=== PATIENT | male | born 1950 | race Caucasian/White ===

== ENCOUNTER 2021-04-14 10:38 | Emergency (ER) | payer OTHER, SELFPAY ==
[2021-04-14 11:14] LABS: BASOPHIL 0.7 % (0-2); EOSINOPHIL 0.6 % (0-7); HCT 48.1 % (42.0-52.0); HGB 17.1 g/dl (13.2-18.0); LYMPHOCYTE 21.2 % (15-48); MCH 33.1 pg (25.0-31.0); MCHC 35.6 g/dL (32.0-36.0); MONOCYTE 7.6 % (0-12); NEUTROPHIL 69.3 % (41-80); NRBC 0; PLT 166 K/uL (150-400); RBC 5.17 M/uL (4.70-6.00); RDW 12.7 % (11.5-14.0); WBC 5.4 K/uL (4.0-10.5)
[2021-04-14 11:34] LABS: ALBUMIN 3.9 g/dL (3.4-5.0); BILIRUBIN - TOTAL 0.4 mg/dL (0.2-1.0); BUN/CREAT RATIO (CALC) 19.2 RATIO; CREATININE 0.73 mg/dL (0.67-1.17); GLOBULIN (CALCULATION) 3.5 g/dL; POTASSIUM 4.2 mmol/L (3.5-5.1); TOTAL PROTEIN 7.4 g/dL (6.4-8.2)
== END 2021-04-14 12:52 | disposition home or self-care (01) ==
LOC: FER 10:38
PROVIDERS: Emergency Medicine
DX: R42 Dizziness and giddiness (principal); F17.220 Nicotine dependence, chewing tobacco, uncomplicated
CPT/HCPCS: 36415; 70450; 71045; 80053; 84484; 85025; 93005

== ENCOUNTER 2022-01-06 05:18 | Emergency (ER) | payer OTHER ==
[2022-01-06 05:52] LABS: BASOPHIL 0.5 % (0-2); HCT 50.6 % (42.0-52.0); HGB 17.3 g/dl (13.2-18.0); LYMPHOCYTE 31.8 % (15-48); MCH 31.7 pg (25.0-31.0); MCHC 34.2 g/dL (32.0-36.0); MCV 92.7 fL (78.0-100.0); MONOCYTE 9.5 % (0-12); MPV 10.4 fL (6.0-9.5); NRBC 0; PLT 134 K/uL (150-400); RBC 5.46 M/uL (4.70-6.00); RDW 12.4 % (11.5-14.0); WBC 4.1 K/uL (4.0-10.5)
[2022-01-06 06:03] LABS: ALBUMIN 3.7 g/dL (3.4-5.0); BILIRUBIN - TOTAL 0.7 mg/dL (0.2-1.0); BUN/CREAT RATIO (CALC) 14.5 RATIO; CREATININE 0.76 mg/dL (0.67-1.17); GLOBULIN (CALCULATION) 3.2 g/dL; POTASSIUM 3.7 mmol/L (3.5-5.1); TOTAL PROTEIN 6.9 g/dL (6.4-8.2)
[2022-01-06 06:07] LABS: LACTIC ACID 2.1 mmol/L (0.4-1.9)
[2022-01-06] MEDS ORDERED: ATIVAN0.5 MG PO (22:06)
[2022-01-06] MEDS ORDERED: PULMICORT FLE180 MCG INH (22:06)
[2022-01-06] MEDS ORDERED: ONDANSETRON ODT4 MG SL (22:33)
== END 2022-01-06 08:50 | disposition home or self-care (01) ==
LOC: FER 05:18
PROVIDERS: Emergency Medicine Emergency Medical Services
DX: U07.1 COVID-19 (principal); R07.89 Other chest pain; I45.10 Unspecified right bundle-branch block; R03.0 Elevated blood-pressure reading, without diagnosis of hypertension; F17.200 Nicotine dependence, unspecified, uncomplicated
CPT/HCPCS: 36415; 71045; 80053; 83605; 83880; 84145; 84484; 85025; 85379; 87040; 93005; J2270; J2405; U0002

== ENCOUNTER 2022-01-06 18:47 | Emergency (ER) | payer OTHER ==
[2022-01-06 19:44] LABS: BASOPHIL 0.5 % (0-2); EOSINOPHIL 0.5 % (0-7); HCT 49.2 % (42.0-52.0); HGB 17.1 g/dl (13.2-18.0); LYMPHOCYTE 20.9 % (15-48); MCH 32.3 pg (25.0-31.0); MCHC 34.8 g/dL (32.0-36.0); MONOCYTE 7.1 % (0-12); MPV 10.3 fL (6.0-9.5); NEUTROPHIL 70.5 % (41-80); NRBC 0; PLT 153 K/uL (150-400); RBC 5.29 M/uL (4.70-6.00); RDW 12.5 % (11.5-14.0); WBC 4.4 K/uL (4.0-10.5)
[2022-01-06 19:54] LABS: BUN/CREAT RATIO (CALC) 13.3 RATIO; CREATININE 0.75 mg/dL (0.67-1.17); POTASSIUM 3.8 mmol/L (3.5-5.1)
[2022-01-06] MEDS ORDERED: ATIVAN0.5 MG PO (22:06)
[2022-01-06] MEDS ORDERED: PULMICORT FLE180 MCG INH (22:06)
[2022-01-06] MEDS ORDERED: ONDANSETRON ODT4 MG SL (22:33)
== END 2022-01-06 22:48 | disposition home or self-care (01) ==
LOC: FER 18:47
PROVIDERS: Emergency Medicine Emergency Medical Services
DX: U07.1 COVID-19 (principal)
CPT/HCPCS: 36415; 36600; 71275; 80048; 82803; 83880; 84484; 85025; 93005; 94640; 94664; J2270; J2405

== ENCOUNTER 2022-08-13 08:12 | Emergency (ER) | payer OTHER ==
[~2022-08-13 08:12] MED LIST: ATIVAN0.5 MG PO; ONDANSETRON ODT4 MG SL; PULMICORT FLE180 MCG INH
[2022-08-13 08:31] LABS: EOSINOPHIL 1.3 % (0-7); HCT 50.3 % (42.0-52.0); HGB 17.2 g/dl (13.2-18.0); LYMPHOCYTE 32.6 % (15-48); MCH 32.5 pg (25.0-31.0); MCHC 34.2 g/dL (32.0-36.0); MCV 94.9 fL (78.0-100.0); MONOCYTE 6.4 % (0-12); MPV 10.3 fL (6.0-9.5); NEUTROPHIL 58.2 % (41-80); NRBC 0; PLT 153 K/uL (150-400); RDW 12.8 % (11.5-14.0)
[2022-08-13 08:45] LABS: INR 0.93 (0.9-1.2); PROTHROMBIN TIME 12.2 SECONDS (11.9-13.9); PTT 26.9 SECONDS (24.9-34.6)
[2022-08-13 08:51] LABS: ALBUMIN 3.9 g/dL (3.4-5.0); BILIRUBIN - TOTAL 0.8 mg/dL (0.2-1.0); BUN/CREAT RATIO (CALC) 14.8 RATIO; CREATININE 0.81 mg/dL (0.67-1.17); GLOBULIN (CALCULATION) 3.4 g/dL; POTASSIUM 3.8 mmol/L (3.5-5.1); TOTAL PROTEIN 7.3 g/dL (6.4-8.2)
== END 2022-08-13 12:02 | disposition home or self-care (01) ==
LOC: FER 08:12
PROVIDERS: Emergency Medicine
DX: R07.89 Other chest pain (principal); F17.220 Nicotine dependence, chewing tobacco, uncomplicated
CPT/HCPCS: 36415; 71045; 80053; 84484; 85025; 85379; 85610; 85730; 93005